=== PATIENT | male | born 1990 | race Hispanic/Latino ===

== ENCOUNTER 2021-06-18 19:37 | Emergency (ER) | payer BC | END 2021-06-18 23:00 | disposition home or self-care (01) | LOC: ERS 19:37 | DX: S61.431A Puncture wound without foreign body of right hand, initial encounter (principal); W26.8XXA Contact with other sharp object(s), not elsewhere classified, initial encounter; Y99.0 Civilian activity done for income or pay ==

== ENCOUNTER 2021-10-15 11:57 | Emergency (ER) | payer BC ==
[2021-10-15] MEDS ORDERED: Ketorolac Tromethamine 30 MG/ML VIAL ONE (14:07)
[2021-10-15] MEDS ORDERED: Lidocaine 1% (PF) 30 ML VIAL ONE (14:18)
== END 2021-10-15 15:58 | disposition home or self-care (01) ==
LOC: ERS 11:57
DX: S61.210A Laceration without foreign body of right index finger without damage to nail, initial encounter (principal); W23.0XXA Caught, crushed, jammed, or pinched between moving objects, initial encounter
CPT/HCPCS: 12001; 96372; J1885; J2001